=== PATIENT | male | born 1985 | race African-American/Black ===

== ENCOUNTER 2017-01-17 01:19 | Inpatient (IN) | payer MEDICAID ==
[2017-01-17] VITALS (7 sets, daily range): BP systolic 108–147; BP diastolic 62–85
[~2017-01-17] VITALS: Ht 185.4 cm; Wt 80.6 kg
--- NOTE | 2017-01-17 02:28 | NUR ---
PATIENT IN ROOM WITH FAMILY, PT QUIET CALM, CHANGED INTO GOWN, STATES UNABLE TO PROVIDE URINE SPEC., PT GIVEN WATER X2 CUPS AND KERRY ANJU X2 CANS WITH ADDITIONAL ICE AND STRAW, PT INFORMED NEED TO PROVIDE URINE TO BEGIN PROCESS OF ADMISSION
[2017-01-17 02:35] LABS: BASO % 0.2 % (0.0-1.0); EOS # 0.3 10*3/uL (0.0-0.4); EOS % 3.3 % (1.0-4.0); HEMATOCRIT 37.4 % (42.0-52.0); LYMPH # 2.6 10*3/uL (1.3-4.4); MEAN CELL VOLUME 91.7 fl (80.0-94.0); MEAN CORPUSCULAR HGB 29.4 pg (27.0-31.0); MEAN CORPUSCULAR HGB CONC 32.1 g/dl (33.0-37.0); MEAN PLATELET VOLUME 8.9 fl (9.6-12.3); MONO # 0.6 10*3/uL (0.1-1.0); MONO % 6.9 % (3.0-9.0); NEUT # 4.8 10*3/uL (2.3-7.9); NEUT % 58.1 % (47.0-73.0); PLATELET COUNT AUTOMATED 321 10*3/uL (130-400); RED BLOOD COUNT 4.08 10*6/uL (4.50-5.90); RED CELL DISTRI WIDTH 16.5 % (0-14.5); WHITE BLOOD COUNT 8.2 10*3/uL (4.8-10.8)
[2017-01-17 02:52] LABS: ALBUMIN 3.5 gm/dl (3.1-4.5); ALKALINE PHOSPHATASE 112 U/L (45-117); BUN 17 mg/dl (7-24); CHLORIDE 103 mmol/L (98-107); CREATININE 0.95 mg/dL (0.70-1.30); POTASSIUM 4.1 mmol/L (3.5-5.1); SGOT/AST 24 IU/L (3-35); SGPT/ALT 60 U/L (12-78); SODIUM 141 mmol/L (136-145); TOTAL PROTEIN 7.8 gm/dL (6.4-8.2)
[2017-01-17 02:56] LABS: ETHYL ALCOHOL < 3.0 mg/dl (<3)
[2017-01-17 02:57] LABS: ACETAMINOPHEN (TYLENOL) < 2.0 ug/ml (10-30)
--- NOTE | 2017-01-17 03:27 | NUR ---
SPOKE WITH PATIENT FAMILY, THEY ARE LEAVING TO GO BACK TO [facility]. PT QUIET CALM, STATES STILL UNABLE TO PROVIDE URINE, PT TOLD THAT A POSITIVE SAMPLE DOES NOT DISQUALIFY HIM FROM PROGRAM AND THAT LEVELS ARE NEEDED A STARTING PLACE FOR TREATMENT, GAVE PT 2 MORE KERRY ALES WITH CUP OF ICE, REPEATED THAT WE ARE HERE TO HELP HIM ON A PATH TO OVERCOME HIS ADDICTION, NOT TO GROCERY ASSOCIATE HIM.
--- NOTE | 2017-01-17 04:40 | NUR ---
PATIENT PROVIDED URINE SAMPLE, PT TO BE ADMITTED TO 5E
[2017-01-17 04:43] LABS: BILIRUBIN NEGATIVE (NEGATIVE); BLOOD NEGATIVE (NEGATIVE); CLARITY SL CLOUDY (CLEAR); COLOR YELLOW (YELLOW); GLUCOSE NEGATIVE (NEGATIVE); KETONE NEGATIVE (NEGATIVE); LEUKO ESTERASE 1+ (NEGATIVE); NITRITE NEGATIVE (NEGATIVE); PH 6.5 (5.0-9.0); SPECIFIC GRAVITY 1.025 (1.005-1.030); UROBILINOGEN 0.2 E.U./dl (0.2-1.0)
[2017-01-17 04:50] LABS: CALCIUM OXALATE CRYSTALS 2+
--- NOTE | 2017-01-17 04:50 | NUR ---
[place]31 year old MALE admitted to room # 511 for stabilization. Reports an addiction to HEROINE AND ALCOHOL last used HEROINE 2 Days ago, alcohol yesterday evening hours prior to admission. Compliant with admission procedure. Patient denies any anxiety, but is unable to sit still, taps toes to floor continuously, looks about room, unable to focus eyes on nurse during interview. See assessment forms for additional information about patient status.
[2017-01-17 04:51] LABS: BACTERIA 1+; URINE AMPHETAMINES > 1000 (1000ng/ml); URINE BARBITURATES < 200 (200ng/ml); URINE BENZODIAZEPINES < 200 (200ng/ml); URINE CANNABINOIDS (THC) > 50 (50ng/ml); URINE COCAINE > 300 (300ng/ml); URINE METHADONE < 300 (300ng/ml); URINE OPIATES < 300 (300ng/ml)
[2017-01-17 04:52] LABS: URINE PHENCYCLIDINE < 25 (25ng/ml)
--- NOTE | 2017-01-17 04:59 | NUR ---
PATIENT REFUSES SKIN ASSESSMENT. STATES MY SKIN IS FINE.
--- NOTE | 2017-01-17 05:22 | NUR ---
ATTEMPTED TO REVIEW MEDICAITONS, PER PATIENT HE DOES NOT TAKE ANY MEDICATIONS AND DOES NOT HAVE A PHYSICIAN.
--- NOTE | 2017-01-17 08:58 | NUR ---
PT REQUESTED MEDICATIONS FOR GENERALIZED MUSCLE ACHES. ROBAXIN GIVEN.
--- NOTE | 2017-01-17 09:27 | NUR ---
PRN ROBAXIN EFFECTIVE FOR MUSCLE ACHES. PT REPORTS DECREASED MUSCLE ACHES.
--- NOTE | 2017-01-17 15:45 | NUR ---
ASSUMED CARE OF PATIENT. PATIENT WAS SITTING ON BED UPON ASSESSMENT. STATES HE'S BEEN TRYING TO CALL MOTHER, BUT CAN'T CALL FROM ROOM. WILL PLACE CALL TO PATIENT'S MOTHER.
[2017-01-18] VITALS: BP 115/63
--- NOTE | 2017-01-18 00:30 | NUR ---
PT RECEIVED RESTILE FOR RESTLESS LEGS.
--- NOTE | 2017-01-18 01:20 | NUR ---
PT CLAIMS HE FEELS MORE COMFORTABLE AFTER RESTILE.
--- NOTE | 2017-01-18 07:39 | NUR ---
AWAKE ALERT AND ORIENTED X3, C/O ANXIETY. VISTARIL GIVEN AT THIS TIME. SEE ASSESS. WILL CONT TO MONITOR. CALL LIGHT IN REACH.
[2017-01-18 08:00] VITALS: BP 110/68
--- NOTE | 2017-01-18 08:39 | NUR ---
[place] AT THIS TIME. WILL CONT TO MONIOTR.
[2017-01-18 12:00] VITALS: BP 106/76
[2017-01-18 14:00] VITALS: BP 106/76
[2017-01-18 16:00] VITALS: BP 125/59
--- NOTE | 2017-01-18 18:14 | NUR ---
PT RESTING QUIETLY. HAS NO C/O. WILL CONT TO MONITOR. CALL LIGHT IN REACH.
[2017-01-18 20:00] VITALS: BP 124/63
--- NOTE | 2017-01-18 20:00 | NUR ---
SLEEPING RESP EASY AND REG.
[2017-01-19] VITALS: BP 126/66
--- NOTE | 2017-01-19 04:00 | NUR ---
SLEEPING. RESP. EASY AND REG
[2017-01-19 08:00] VITALS: BP 113/64
--- NOTE | 2017-01-19 08:05 | NUR ---
IN BED AWAKE ALERT AND ORIENTED X3, REQUESTED SOMETHING FOR ANXIETY AND LEG CRAMPS SO HE WAS GIVEN VISTARIL AND ROBAXIN AT THIS TIME. NO S/S OF DISTRESS. WILL CONT TO MONITOR. CALL LIGHT IN REACH.
--- NOTE | 2017-01-19 09:05 | NUR ---
ROBAXIN AND VISTARIL EFF AT THIS TIME PER PT. WILL CONT TO MONITOR.
[2017-01-19 12:00] VITALS: BP 115/64
[2017-01-19 16:00] VITALS: BP 122/86
[2017-01-19 20:00] VITALS: BP 124/58
--- NOTE | 2017-01-19 20:00 | NUR ---
RESTING QUIETLY IN BED. EYES CLOSED. NO ACUTE DISTRESS NOTED.
[2017-01-20] VITALS: BP 120/65
--- NOTE | 2017-01-20 03:23 | NUR ---
Requested and medicated with Motrin for complaints of toothache pain rated as a 7/10. Motrin effective to decrease pain and allow to rest quietly. Will continue to monitor.
[2017-01-20 07:35] LABS: BASO # 0.1 10*3/uL (0.0-0.1); BASO % 0.9 % (0.0-1.0); EOS # 0.6 10*3/uL (0.0-0.4); EOS % 11.1 % (1.0-4.0); HEMATOCRIT 40.3 % (42.0-52.0); HEMOGLOBIN 13.2 g/dl (14.0-18.0); LYMPH # 2.9 10*3/uL (1.3-4.4); LYMPH % 55.3 % (27.0-41.0); MEAN CORPUSCULAR HGB 30.1 pg (27.0-31.0); MEAN CORPUSCULAR HGB CONC 32.8 g/dl (33.0-37.0); MEAN PLATELET VOLUME 9.2 fl (9.6-12.3); MONO # 0.6 10*3/uL (0.1-1.0); MONO % 11.1 % (3.0-9.0); NEUT # 1.1 10*3/uL (2.3-7.9); NEUT % 20.5 % (47.0-73.0); PLATELET COUNT AUTOMATED 358 10*3/uL (130-400); RED BLOOD COUNT 4.38 10*6/uL (4.50-5.90); RED CELL DISTRI WIDTH 16.4 % (0-14.5); WHITE BLOOD COUNT 5.3 10*3/uL (4.8-10.8)
[2017-01-20 07:54] LABS: CREATININE 0.78 mg/dL (0.70-1.30)
[2017-01-20 08:00] VITALS: BP 116/78
[2017-01-20] MEDS ORDERED: ZOFRAN 4 MG ED2 TAB PO (08:57)
[2017-01-20] MEDS ORDERED: METHOCARBAMOL750 M1 PO (08:57)
[2017-01-20] MEDS ORDERED: ATARAX,VISTARIL50 MG PO (08:57)
--- NOTE | 2017-01-20 10:14 | NUR ---
[place] STAFF SPOKE WITH PATIENT ABOUT THE [facility]. PATIENT REFUSED ALL REFERRALS AND SERVICES. ARIN BLUNT B.A. PROJECT ACCOUNTANT
--- NOTE | 2017-01-20 11:12 | NUR ---
Discharge instructions reviewed with patient/family. Patient receptive and verbalizes understanding. Follow-up care arranged. Written instructions given to patient/family. KASI GARCIA
== END 2017-01-20 11:12 | disposition home or self-care (01) | DRG 897 ==
LOC: ED 01:19 → EDHOLD 04:35 → 5E 04:35
PROVIDERS: Emergency Medicine Emergency Medical Services; ADMIT Internal Medicine
DX: F11.23 Opioid dependence with withdrawal (principal); F22 Delusional disorders; F10.232 Alcohol dependence with withdrawal with perceptual disturbance; G25.81 Restless legs syndrome; R73.9 Hyperglycemia, unspecified; F19.10 Other psychoactive substance abuse, uncomplicated; Y90.9 Presence of alcohol in blood, level not specified; F17.200 Nicotine dependence, unspecified, uncomplicated; R03.0 Elevated blood-pressure reading, without diagnosis of hypertension; D64.9 Anemia, unspecified; F15.10 Other stimulant abuse, uncomplicated; F14.10 Cocaine abuse, uncomplicated; F12.10 Cannabis abuse, uncomplicated; R80.9 Proteinuria, unspecified; R82.71 Bacteriuria; R82.99 Other abnormal findings in urine; Z71.6 Tobacco abuse counseling